=== PATIENT | male | born 1970 | race Caucasian/White ===

== ENCOUNTER 2019-08-03 17:45 | Emergency (ER) | payer BC ==
--- NOTE | 2019-08-03 19:46 | EDM.PDOC ---
ED HPI GENERAL MEDICAL PROBLEM - General Chief Complaint: Abdominal Pain Stated Complaint: ABDOMINAL PAIN Time Seen by Provider: 08/03/19 19:34 Source of Information: Reports: Patient History Limitations: Reports: No Limitations - History of Present Illness INITIAL COMMENTS - FREE TEXT/NARRATIVE: 49-year-old gentleman presents the emergency room chief complaint of right abdominal pain. Patient states he is gurgling and has had pain for the past 3 days. Patient for urinating and defecating. Denies fever chills shortness of breath. Duration: Day(s):, Intermittent Location: Reports: Abdomen Quality: Reports: Ache Severity: Moderate Improves with: Reports: None Worsens with: Reports: None Associated Symptoms: Reports: No Other Symptoms - Related Data Allergies Allergy/AdvReac Type Severity Reaction Status Date / Time No Known Allergies Allergy Verified 08/03/19 18:19 Home Meds: Home Meds . [No Known Home Meds] 08/03/19 [History] Past Medical History - Past Health History Medical/Surgical History: Denies Medical/Surgical History - Infectious Disease History Infectious Disease History: Reports: Chicken Pox Social & Family History - Family History Family Medical History: Noncontributory - Tobacco Use Smoking Status *Q: Former Smoker Years of Tobacco use: 15 Packs/Tins Daily: 1 Used Tobacco, but Quit: Yes Month/Year Tobacco Last Used: 1yr - Caffeine Use Caffeine Use: Reports: None - Recreational Drug Use Recreational Drug Use: No ED ROS GENERAL - Review of Systems Review Of Systems: See Below Constitutional: Reports: No Symptoms HEENT: Reports: No Symptoms Respiratory: Reports: No Symptoms Cardiovascular: Reports: No Symptoms. Denies: Chest Pain, Blood Pressure Problem, Claudication, Dyspnea on Exertion, Edema, Lightheadedness Endocrine: Reports: No Symptoms GI/Abdominal: Reports: Abdominal Pain, Constipation. Denies: Anorexia, Black Stool, Bloody Stool, Diarrhea, Decreased Appetite, Difficulty Swallowing : Reports: Dysuria, Irregular Menses. Denies: Flank Pain, Frequency, Hematuria, Incontinence, Pain, Urgency Musculoskeletal: Reports: No Symptoms. Denies: Neck Pain, Shoulder Pain, Arm Pain, Back Pain, Hand Pain, Leg Pain, Foot Pain, Joint Pain Skin: Reports: No Symptoms Neurological: Reports: No Symptoms Psychiatric: Reports: No Symptoms Hematologic/Lymphatic: Reports: No Symptoms Immunologic: Reports: No Symptoms ED EXAM, GI/ABD - Physical Exam Exam: See Below Text/Narrative:: This exam is isolated to the abdomen Right upper abdominal pain some flank pain. Normal active bowel sounds. No evidence of guarding or rebound. Exam Limited By: No Limitations General Appearance: Alert, WD/WN, No Apparent Distress Eyes: Bilateral: Normal Appearance Ears: Normal External Exam, Normal Canal, Hearing Grossly Normal Throat/Mouth: Normal Inspection, Normal Lips Head: Atraumatic, Normocephalic Neck: Normal Inspection, Supple, Non-Tender Respiratory/Chest: No Respiratory Distress, Lungs Clear, Normal Breath Sounds, No Accessory Muscle Use Cardiovascular: Normal Peripheral Pulses, Regular Rate, Rhythm, No Edema, No Gallop, No JVD, No Murmur GI/Abdominal Exam: Normal Bowel Sounds, Soft, Tender. No: Guarding, Rigid, Rebound, Hernia, Mass, Hepatomegaly, Splenomegaly (Male) Exam: Deferred Rectal (Males) Exam: Deferred Extremities: Normal Inspection, Normal Range of Motion, No Pedal Edema Neurological: Alert, Oriented, CN II-XII Intact, Normal Cognition, Normal Gait Psychiatric: Normal Affect, Normal Mood Skin Exam: Warm, Dry, Intact Course - Vital Signs Last Recorded V/S: Last Vital Signs Temp 98.6 F 08/03/19 18:19 Pulse 74 08/03/19 21:20 Resp 18 08/03/19 21:20 BP 145/91 H 08/03/19 21:20 Pulse Ox 98 08/03/19 21:20 - Orders/Labs/Meds Labs: Laboratory Tests 08/03/19 08/03/19 08/03/19 Range/Units 19:20 20:06 20:06 WBC 7.42 (4.0-11.0) K/uL RBC 5.31 (4.50-5.90) M/uL Hgb 16.2 (13.0-17.0) g/dL Hct 47.1 (38.0-50.0) % MCV 88.7 (80.0-98.0) fL MCH 30.5 (27.0-32.0) pg MCHC 34.4 (31.0-37.0) g/dL RDW Std Deviation 43.7 (28.0-62.0) fl RDW Coeff of Karri 14 (11.0-15.0) % Plt Count 186 (150-400) K/uL MPV 11.30 (7.40-12.00) fL Neut % (Auto) 67.8 (48.0-80.0) % Lymph % (Auto) 21.6 (16.0-40.0) % [place] % (Auto) 9.2 (0.0-15.0) % Eos % (Auto) 1.3 (0.0-7.0) % Baso % (Auto) 0.1 (0.0-1.5) % Neut # (Auto) 5.0 (1.4-5.7) K/uL Lymph # (Auto) 1.6 (0.6-2.4) K/uL [place] # (Auto) 0.7 (0.0-0.8) K/uL Eos # (Auto) 0.1 (0.0-0.7) K/uL Baso # (Auto) 0.0 (0.0-0.1) K/uL Nucleated RBC % 0.0 /100WBC Nucleated RBCs # 0 K/uL Sodium 139 (136-148) mmol/L Potassium 4.1 (3.5-5.1) mmol/L Chloride 104 (98-107) mmol/L Carbon Dioxide 24.2 (21.0-32.0) mmol/L BUN 19 H (7.0-18.0) mg/dL Creatinine 1.0 (0.8-1.3) mg/dL Est Cr Clr Drug Dosing 88.38 mL/min Estimated GFR (MDRD) > 60.0 ml/min Glucose 103 (74-106) mg/dL Calcium 9.1 (8.5-10.1) mg/dL Total Bilirubin 0.3 (0.2-1.0) mg/dL AST 20 (15-37) IU/L ALT 58 (14-63) IU/L Alkaline Phosphatase 80 (46-116) U/L Total Protein 7.4 (6.4-8.2) g/dL Albumin 4.1 (3.4-5.0) g/dL Globulin 3.3 (2.6-4.0) g/dL Albumin/Globulin Ratio 1.2 (0.9-1.6) Urine Color YELLOW Urine Appearance CLEAR Urine pH 5.5 (5.0-8.0) Ur Specific [place] 1.020 (1.001-1.035) Urine Protein NEGATIVE (NEGATIVE) mg/dL Urine Glucose (UA) NEGATIVE (NEGATIVE) mg/dL Urine Ketones NEGATIVE (NEGATIVE) mg/dL Urine Occult Blood NEGATIVE (NEGATIVE) Urine Nitrite NEGATIVE (NEGATIVE) Urine Bilirubin NEGATIVE (NEGATIVE) Urine Urobilinogen 0.2 (<2.0) EU/dL Ur Leukocyte Esterase NEGATIVE (NEGATIVE) Departure - Departure Time of Disposition: 22:25 Disposition: Home, Self-Care 01 Condition: Good Clinical Impression: Gastroenteritis - Discharge Information Referrals: PCP,None [Primary Care Provider] - Forms: ED Department Discharge Sepsis Event Note - Evaluation Sepsis Screening Result: No Definite Risk - Focused Exam Vital Signs: Vital Signs Temp Pulse Resp BP Pulse Ox 08/03/19 21:20 74 18 145/91 H 98 08/03/19 18:19 98.6 F 73 16 151/84 H 96 Date Exam was Performed: 08/03/19 Time Exam was Performed: 22:23
[2019-08-03 20:35] LABS: BLOOD UREA NITROGEN,BUN 19 mg/dL (7.0-18.0); CARBON DIOXIDE,CO2 24.2 mmol/L (21.0-32.0); CHLORIDE,CL 104 mmol/L (98-107); GLUCOSE RANDOM 103 mg/dL (74-106); POTASSIUM,K 4.1 mmol/L (3.5-5.1); SODIUM,NA 139 mmol/L (136-148)
--- NOTE | 2019-08-03 20:38 | CT ---
INDICATION: Left lower quadrant pain. TECHNIQUE: Volumetric helical scanning of the abdomen and pelvis was performed without contrast material. Coronal and sagittal reconstructions were obtained. COMPARISON: None FINDINGS: There is no evidence of bowel obstruction or inflammation. A normal appendix is noted. No free fluid is demonstrated. The liver is normal in size, shape and attenuation. No bile duct dilation is evident. The spleen is within normal limits. The adrenal glands are unremarkable. The pancreas is within normal limits. The kidneys are unremarkable. No lymphadenopathy is evident. The prostate is within normal limits. The lung bases are clear. The heart is normal in size. Calcified coronary arterial plaque is demonstrated. IMPRESSION: 1. Negative CT of the abdomen and pelvis. Etiology of left lower quadrant pain not evident. 2. Coronary artery disease. Please note that all CT scans at this facility use dose modulation, iterative reconstruction, and/or weight-based dosing when appropriate to reduce radiation dose to as low as reasonably achievable. Dictated by Eladio Croft MD @ Aug 03 2019 8:34PM Signed by Dr. Eladio Croft @ Aug 03 2019 8:37PM
== END 2019-08-03 22:30 | disposition home or self-care (01) ==
LOC: MW.ED 17:45
DX: K52.9 Noninfective gastroenteritis and colitis, unspecified (principal); Z87.891 Personal history of nicotine dependence
CPT/HCPCS: 36415; 74176; 74176-26; 80053; 81003; 85025; 99282; 99284-25

== ENCOUNTER 2019-08-12 10:45 | Emergency (ER) | payer BC ==
[2019-08-12] MEDS ORDERED: Alum Hydrox/Mag Hydrox/Simeth 15 ML, Metoclopramide 5 MG, Lidocaine 2% 5 ML PO ONE ×3 (11:19)
--- NOTE | 2019-08-12 11:24 | EDM.PDOC ---
ED HPI GENERAL MEDICAL PROBLEM - General Chief Complaint: Abdominal Pain Stated Complaint: ABDOMINAL PAIN Time Seen by Provider: 08/12/19 11:09 Source of Information: Reports: Patient History Limitations: Reports: No Limitations - History of Present Illness INITIAL COMMENTS - FREE TEXT/NARRATIVE: HISTORY AND PHYSICAL: History of present illness: Patient is a 49-year-old male who presents to the emergency room with complaints of right upper quadrant pain x2 weeks. States the pain is to the upper abdomen and can go from left to right upper quadrant but mostly in the right upper quadrant. States the pain is worse after eating, does note it occasionally after voiding or having a bowel movement. He was in our emergency room on 08/03/2019 for this pain and did have labs and a CT of his abdomen and pelvis. All diagnostics were unremarkable and he was given some Bentyl for home and encouraged to follow-up with primary care or general surgery for further evaluation. He states he has not had any improvement with the Bentyl. He has yet to follow-up but states that the pain has not improved and thinks he has some "kind of infection up there". Patient denies any fever, chills, headache, change in vision, syncope or near syncope. Denies any chest pain, back pain, shortness of breath or cough. Denies any nausea, vomiting, diarrhea, constipation or dysuria. Has not noted any blood in urine or stool. Patient has been eating and drinking appropriately. Review of systems: As per history of present illness and below otherwise all systems reviewed and negative. Past medical history: As per history of present illness and as reviewed below otherwise noncontributory. Surgical history: As per history of present illness and as reviewed below otherwise noncontributory. Social history: See social history for further information Family history: As per history of present illness and as reviewed below otherwise noncontributory. Physical exam: General: Well developed and well nourished 49-year-old male. Alert and oriented. Nontoxic-appearing and in no acute distress. HEENT: Atraumatic, normocephalic, pupils equal and reactive bilaterally, negative for conjunctival pallor or scleral icterus, mucous membranes moist, TMs normal bilaterally, throat clear, neck supple, nontender, trachea midline. No drooling or trismus noted. No meningeal signs. No hot potato voice noted. Lungs: Clear to auscultation, breath sounds equal bilaterally, chest nontender. Heart: S1S2, regular rate and rhythm without overt murmur Abdomen: Soft, nondistended, obese, right upper quadrant tenderness with deep palpation. Negative for masses or hepatosplenomegaly. Negative for costovertebral tenderness. Pelvis: Stable nontender. Skin: Intact, warm, dry. No lesions or rashes noted. Extremities: Atraumatic, moves all extremities per self without difficulty or deficits, negative for cords or calf pain. Neurovascular unremarkable. Neuro: Awake, alert, oriented. Cranial nerves II through XII unremarkable. Cerebellum unremarkable. Motor and sensory unremarkable throughout. Exam nonfocal. Notes: Lab work and ultrasound are unremarkable. I did encourage him to follow-up with general surgery as he may need to have further evaluation with endoscopy or HIDA scan if pain continues. Vital signs remained stable. Supportive care measures were reviewed and discussed. Voices understanding and is agreeable to plan of care. Denies any further questions or concerns at this time. Diagnostics: CBC, CMP, UA, lipase, gallbladder ultrasound Therapeutics: GI cocktail Prescription: Tramadol (#15) Carafate Impression: Abdominal Pain Plan: 1. Today's labs and ultrasound were normal. You need to set up a follow-up appointment with the general surgeon for further evaluation. 2. Please take the medication as directed. 3. Please change your diet: [place] diet (avoid high fat, spicy foods) 4. Return to the ED as needed as discussed. Definitive disposition and diagnosis as appropriate pending reevaluation and review of above. RUQ abd Pain Score (Numeric/FACES): 3 - Related Data Allergies Allergy/AdvReac Type Severity Reaction Status Date / Time No Known Allergies Allergy Verified 08/03/19 18:19 Home Meds: Home Meds Dicyclomine HCl [Bentyl] 10 mg PO Q8HR 7 Days #21 capsule 08/03/19 [Rx] Past Medical History - Past Health History Medical/Surgical History: Denies Medical/Surgical History - Infectious Disease History Infectious Disease History: Reports: Chicken Pox Social & Family History - Family History Family Medical History: Noncontributory - Tobacco Use Smoking Status *Q: Former Smoker Used Tobacco, but Quit: Yes Month/Year Tobacco Last Used: 2017 - Caffeine Use Caffeine Use: Reports: None - Recreational Drug Use Recreational Drug Use: No ED ROS GENERAL - Review of Systems Review Of Systems: Comprehensive ROS is negative, except as noted in HPI. ED EXAM, GI/ABD - Physical Exam Exam: See Below (See dictation) Course - Vital Signs Last Recorded V/S: Last Vital Signs Temp 97.7 F 08/12/19 11:04 Pulse 74 08/12/19 11:04 Resp 16 08/12/19 11:04 BP 147/87 H 08/12/19 11:04 Pulse Ox 97 08/12/19 11:04 - Orders/Labs/Meds Labs: Laboratory Tests 08/12/19 08/12/19 08/12/19 Range/Units 11:28 11:29 11:29 WBC 6.94 (4.0-11.0) K/uL RBC 5.37 (4.50-5.90) M/uL Hgb 16.3 (13.0-17.0) g/dL Hct 47.1 (38.0-50.0) % MCV 87.7 (80.0-98.0) fL MCH 30.4 (27.0-32.0) pg MCHC 34.6 (31.0-37.0) g/dL RDW Std Deviation 42.4 (28.0-62.0) fl RDW Coeff of Karri 13 (11.0-15.0) % Plt Count 196 (150-400) K/uL MPV 11.50 (7.40-12.00) fL Neut % (Auto) 71.7 (48.0-80.0) % Lymph % (Auto) 18.6 (16.0-40.0) % [place] % (Auto) 8.4 (0.0-15.0) % Eos % (Auto) 1.2 (0.0-7.0) % Baso % (Auto) 0.1 (0.0-1.5) % Neut # (Auto) 5.0 (1.4-5.7) K/uL Lymph # (Auto) 1.3 (0.6-2.4) K/uL [place] # (Auto) 0.6 (0.0-0.8) K/uL Eos # (Auto) 0.1 (0.0-0.7) K/uL Baso # (Auto) 0.0 (0.0-0.1) K/uL Nucleated RBC % 0.0 /100WBC Nucleated RBCs # 0 K/uL Sodium 133 L (136-148) mmol/L Potassium 4.4 (3.5-5.1) mmol/L Chloride 101 (98-107) mmol/L Carbon Dioxide 26.9 (21.0-32.0) mmol/L BUN 13 (7.0-18.0) mg/dL Creatinine 1.0 (0.8-1.3) mg/dL Est Cr Clr Drug Dosing 97.00 mL/min Estimated GFR (MDRD) > 60.0 ml/min Glucose 98 (74-106) mg/dL Calcium 9.7 (8.5-10.1) mg/dL Total Bilirubin 0.5 (0.2-1.0) mg/dL AST 24 (15-37) IU/L ALT 57 (14-63) IU/L Alkaline Phosphatase 78 (46-116) U/L Total Protein 7.8 (6.4-8.2) g/dL Albumin 4.3 (3.4-5.0) g/dL Globulin 3.5 (2.6-4.0) g/dL Albumin/Globulin Ratio 1.2 (0.9-1.6) Lipase 83 (73-393) U/L Urine Color YELLOW Urine Appearance CLEAR Urine pH 6.0 (5.0-8.0) Ur Specific [place] 1.020 (1.001-1.035) Urine Protein NEGATIVE (NEGATIVE) mg/dL Urine Glucose (UA) NEGATIVE (NEGATIVE) mg/dL Urine Ketones NEGATIVE (NEGATIVE) mg/dL Urine Occult Blood NEGATIVE (NEGATIVE) Urine Nitrite NEGATIVE (NEGATIVE) Urine Bilirubin NEGATIVE (NEGATIVE) Urine Urobilinogen 0.2 (<2.0) EU/dL Ur Leukocyte Esterase NEGATIVE (NEGATIVE) Meds: Medications Discontinued Medications Generic Name Dose Route Start Last Admin Trade Name Freq PRN Reason Stop Dose Admin Al Hydroxide/Mg Hydroxide 15 0 ml 08/12/19 11:19 08/12/19 11:27 ml/ Metoclopramide HCl 5 mg/ PO 08/12/19 11:20 25 each Lidocaine HCl 5 ml ONETIME ONE Administration Departure - Departure Time of Disposition: 13:14 Disposition: Home, Self-Care 01 Clinical Impression: Abdominal pain Qualifiers: Abdominal location: right upper quadrant Qualified Code(s): R10.11 - Right upper quadrant pain - Discharge Information Instructions: Abdominal Pain, Adult, [id number] Referrals: PCP,None [Primary Care Provider] - Forms: ED Department Discharge Additional Instructions: The following information is given to patients seen in the emergency department who are being discharged to home. This information is to outline your options for follow-up care. We provide all patients seen in our emergency department with a follow-up referral. The need for follow-up, as well as the timing and circumstances, are variable depending upon the specifics of your emergency department visit. If you don't have a primary care physician on staff, we will provide you with a referral. We always advise you to contact your personal physician following an emergency department visit to inform them of the circumstance of the visit and for follow-up with them and/or the need for any referrals to a consulting specialist. The emergency department will also refer you to a specialist when appropriate. This referral assures that you have the opportunity for follow-up care with a specialist. All of these measure are taken in an effort to provide you with optimal care, which includes your follow-up. Under all circumstances we always encourage you to contact your private physician who remains a resource for coordinating your care. When calling for follow-up care, please make the office aware that this follow-up is from your recent emergency room visit. If for any reason you are refused follow-up, please contact the [facility] Emergency Department at and asked to speak to the emergency department charge nurse. [facility] [address] [place] [id number] [facility] Specialty [facility] - General Surgery Professional Building [address] [place] [address], [address] [place] [address] 1. Today's labs and ultrasound were normal. You need to set up a follow-up appointment with the general surgeon for further evaluation. 2. Please take the medication as directed. 3. Please change your diet: [place] diet (avoid high fat, spicy foods) 4. Return to the ED as needed as discussed. Sepsis Event Note - Evaluation Sepsis Screening Result: No Definite Risk - Focused Exam Vital Signs: Vital Signs Temp Pulse Resp BP Pulse Ox 08/12/19 11:04 97.7 F 74 16 147/87 H 97 Date Exam was Performed: 08/12/19 Time Exam was Performed: 13:13
[2019-08-12 12:19] LABS: BLOOD UREA NITROGEN,BUN 13 mg/dL (7.0-18.0); CARBON DIOXIDE,CO2 26.9 mmol/L (21.0-32.0); CHLORIDE,CL 101 mmol/L (98-107); GLUCOSE RANDOM 98 mg/dL (74-106); LIPASE 83 U/L (73-393); POTASSIUM,K 4.4 mmol/L (3.5-5.1); SODIUM,NA 133 mmol/L (136-148)
--- NOTE | 2019-08-12 13:11 | US ---
Limited abdominal ultrasound: Multiple real-time images of the upper right abdomen were obtained. Comparison: Previous CT abdomen and pelvis exam of 08/03/19. Findings: Liver shows no focal abnormality. Right kidney shows no hydronephrosis or mass. Right kidney has a length of 12.3 cm. Gallbladder contains no shadowing gallstones. No gallbladder wall thickening or biliary duct dilatation is seen. Visualized pancreas shows no discrete abnormality. Impression: 1. No abnormality is appreciated on right upper quadrant abdominal ultrasound. Diagnostic code #1 This report was dictated in [place] Standard Time
== END 2019-08-12 13:24 | disposition home or self-care (01) ==
LOC: MW.ED 10:45
DX: R10.11 Right upper quadrant pain (principal); Z87.891 Personal history of nicotine dependence
CPT/HCPCS: 36415; 76705; 80053; 81003; 83690; 85025; 99284; A9270; 99283

== ENCOUNTER 2024-04-27 15:48 | Emergency (ER) | payer BC | END 2024-04-27 17:09 | disposition left against medical advice (07) | LOC: MW.ED 15:48 | DX: Z53.21 Procedure and treatment not carried out due to patient leaving prior to being seen by health care provider (principal) ==